=== PATIENT | male | born 1970 | race Caucasian/White ===

== ENCOUNTER 2017-01-22 09:25 | Emergency (ER) | payer MEDICAID, OTHER ==
[~2017-01-22] VITALS: Ht 177.8 cm; Wt 94.9 kg
[~2017-01-22 09:25] MED LIST: HYDR-3498 PO; NAPR-260 PO
[2017-01-22 09:28] VITALS: Ht 177.8 cm; Wt 94.9 kg
[2017-01-22] MEDS ORDERED: IBUPROFEN 600 MG TAB PO ONE (12:00)
[2017-01-22] MEDS ORDERED: METH500T PO (12:55)
[2017-01-22] MEDS ORDERED: IBUP-1542 PO (12:55)
--- NOTE | 2017-01-22 12:58 | ERD ---
ER Documentation Chief Complaint Chief Complaint B/L SHOULDER PAIN X 4 DAYS , NO TRAUMA HPI This 46-year-old male presents with 4 day history of pain in his upper thoracic area. He denies any history of trauma. Denies any cough, fevers, shortness breath, weakness, additional symptoms. Feels like the pain is in between his shoulder blades. He is concerned about his lungs ROS All systems reviewed and are negative except as per history of present illness. Medications Home Meds Active Scripts Methocarbamol* (Robaxin*) 500 Mg Tab, 500 MG PO Q6, #14 TAB Prov:BRANDON SPENCER MD 01/22/17 Ibuprofen* (Motrin*) 600 Mg Tab, 600 MG PO Q6, #20 TAB Prov:BRANDON SPENCER MD 01/22/17 Naproxen* (Naprosyn*) 500 Mg Tablet, 500 MG PO BID Y for PAIN AND/OR INFLAMMATION, #30 TAB Prov:LUIS ARMANDO DAI PA-C 10/09/14 Hydrocodone Bit-Acetaminophen* ([place]*) 5-325 Mg Tab, 1 TAB PO Q6 Y for PAIN, # 15 TAB Prov:LUIS ARMANDO DAI PA-C 10/09/14 Reported Medications [None] No Conflict Check 02/16/10 Allergies Allergies: Coded Allergies: No Known Allergies (Verified Allergy, Mild, 01/22/17) PMhx/Soc History of Surgery: Yes (RIGHT ARM) Anesthesia Reaction: No Hx Neurological Disorder: No Hx Respiratory Disorders: No Hx Cardiac Disorders: No Hx Psychiatric Problems: No Hx Miscellaneous Medical Probl: No Hx Alcohol Use: No Hx Substance Use: No Hx Tobacco Use: No Smoking Status: Never smoker Physical Exam Vitals Vital Signs Date Time Temp Pulse Resp B/P Pulse Ox O2 Delivery O2 Flow Rate FiO2 01/22/17 09:28 97.7 65 18 130/80 96 Physical Exam Const: [] Alert, [id number]. Head: Atraumatic Eyes: Normal Conjunctiva ENT: Normal External Ears, Nose and Mouth. Neck: Full range of motion..~ No meningismus. Resp: Clear to auscultation bilaterally Cardio: Regular rate and rhythm, no murmurs Abd: Soft, non tender, non distended. Normal bowel sounds Skin: No petechiae or rashes Back: No midline or flank tenderness or tenderness with mild spasm in the infra scapular area bilaterally. There is no bony tenderness or deformities. Ext: No cyanosis, or edema Neur: Awake and alert. Ambulatory. No appreciable focal neurologic deficits. Psych: Normal Mood and Affect Results 24 hrs Current Medications Medications (Trade) Dose Ordered Sig/Janay Route PRN Reason Start Time Stop Time Status Last Admin Dose Admin Ibuprofen (Motrin) 600 mg ONCE ONCE PO 01/22/17 12:00 01/22/17 12:01 DC 01/22/17 12:30 Procedures/MDM Chest X-ray 1V Interpreted by me: Soft Tissue: No acute abnormalities Bones: No acute abnormalities Mediastinum/Cardiac Silhouette/Lungs: [No acute abnormalities] impression- normal 1 view chest x-ray Patient was given ibuprofen for pain. Patient presents with bilateral upper thoracic spasm without signs or symptoms of cellulitis, fracture, dislocation, acute cardiopulmonary etiology. He will be treated with Robaxin and ibuprofen, instructions for stretching, primary care follow-up and return precautions. Departure Diagnosis: Primary Impression: Strain of thoracic region Encounter type: initial encounter Qualified Code: S29.019A - Strain of thoracic region, initial encounter Condition: Stable Patient Instructions: Thoracic Strain Additional Instructions: X-ray appears normal. Likely muscle strain. Recheck for new or worsening symptoms with primary care doctor this week. Recommend stretching at home. BRANDON SPENCER MD Jan 22, 2017 12:58
--- NOTE | 2017-01-22 13:03 | RADRPT ---
PROCEDURE: XR Chest. CLINICAL INDICATION: Back pain TECHNIQUE: Frontal chest x-ray was obtained. COMPARISON: None. FINDINGS: Heart is not enlarged. Mediastinum is not widened. No hilar mass is seen. Lungs are clear of any inf iltrates. There is no effusion or pneumothorax. IMPRESSION: No evidence for active cardiopulmonary disease. .Mynor Meneses MD, MD Date Time Electronically viewed and signed by .Mynor Meneses MD, MD on 01/22/2017 13:03 .A/
== END 2017-01-22 13:09 | disposition home or self-care (01) ==
LOC: FTE 09:25
DX: S29.019A Strain of muscle and tendon of unspecified wall of thorax, initial encounter (principal); X58.XXXA Exposure to other specified factors, initial encounter; Y92.9 Unspecified place or not applicable
CPT/HCPCS: 71010; Z7502; Z7610

== ENCOUNTER 2017-03-24 17:32 | Emergency (ER) | END 2017-03-24 22:05 | disposition home or self-care (01) ==